=== PATIENT | female | born 1960 | race Caucasian/White ===

== ENCOUNTER 2018-11-23 10:10 | Emergency (ER) | payer MEDICARE ==
--- NOTE | 2018-11-23 12:10 | ED Physician Documentation ---
History of Present Illness - Stated complaint Stated Complaint: HEADACHE - Chief complaint Chief Complaint: Neuro - History obtained from History obtained from: Patient, Family - Additonal information Additional information: Most of the history is from her significant other as the patient is quite somnolent. This is a 58-year-old woman who is visiting friends from [place]. She has a history of heroin abuse for which she is on Suboxone. Last heroin was about a year ago. She also has a history of bipolar disorder on Abilify. Last night and recently she has been taking OxyContin which she obtained illicitly. This morning she took her Suboxone and then for several hours was restless and fidgety and complaining of a headache. Now is more somnolent. She does wake up and answers simple questions. Review of Systems Ten Systems: 10 systems reviewed and negative Constitutional: denies: Fever, Chills Nose: denies: Rhinorrhea / runny nose, Congestion Respiratory: reports: Reviewed and negative GI: reports: Reviewed and negative PD PAST MEDICAL HISTORY - Past Medical History Psych: Bipolar disorder - Past Surgical History Ortho: Hip replacement - Present Medications Home Medications: Ambulatory Orders Medication Instructions Recorded Confirmed Alprazolam [Xanax] 0 mg PO 11/23/18 Aripiprazole [Abilify] 15 mg PO 11/23/18 11/23/18 Buprenorphine HCl/Naloxone HCl 1 each SL 11/23/18 [Suboxone 8-2 mg Sl tab] Soy Isofl/Blk Coh/Gr Tea/Yerba 1 each PO 11/23/18 [[employer]] - Allergies Allergies/Adverse Reactions: Allergies Allergy/AdvReac Type Severity Reaction Status Date / Time Sulfa (Sulfonamide Allergy Rash Verified 11/23/18 10:31 Antibiotics) - Social History Does the pt smoke?: No Smoking Status: Never smoker Does the pt drink ETOH?: No Substance Use and Type: Prescription Pills - Immunizations Immunizations: TDAP >10years/unknown PD ED PE NORMAL - Vitals Vital signs reviewed: Yes - General General: No acute distress, Other (She is somnolent but arouses to voice, pupils are midpoint and reactive.) - Neck Neck: Supple, no meningeal sign, No bony TTP - Cardiac Cardiac: RRR, No murmur - Respiratory Respiratory: No respiratory distress, Clear bilaterally - Abdomen Abdomen: Normal bowel sounds, Soft, Non tender - Back Back: No CVA TTP, No spinal TTP - Derm Derm: Normal color, Warm and dry - Extremities Extremities: No edema, No calf tenderness / cord - Neuro Neuro: Alert and oriented X 3, No motor deficit, No sensory deficit, Normal speech Eye Opening: To Voice Motor: Obeys Commands Verbal: Oriented GCS Score: 14 Results - Vitals Vitals: Vital Signs - 24 hr 11/23/18 11/23/18 10:27 12:30 Temperature 36.3 C L Heart Rate 77 74 Respiratory 22 20 Rate Blood Pressure 151/97 H 138/72 H O2 Saturation 100 97 Oxygen O2 Source Room air - Labs Labs: Laboratory Tests 11/23/18 12:16 Urine Color YELLOW Urine Clarity CLEAR Urine pH 7.5 Ur Specific [place] <=1.005 Urine Protein NEGATIVE Urine Glucose (UA) NEGATIVE Urine Ketones NEGATIVE Urine Occult Blood NEGATIVE Urine Nitrite NEGATIVE Urine Bilirubin NEGATIVE Urine Urobilinogen 0.2 (NORMAL) Ur Leukocyte Esterase NEGATIVE Ur Microscopic Review NOT INDICATED Urine Culture Comments NOT INDICATED Urine Opiates Screen NEGATIVE Ur Oxycodone Screen NEGATIVE Urine Methadone Screen NEGATIVE Ur Propoxyphene Screen NEGATIVE Ur Barbiturates Screen NEGATIVE Ur Tricyclics Screen NEGATIVE Ur Phencyclidine Scrn NEGATIVE Ur Amphetamine Screen POSITIVE H U Methamphetamines Scrn POSITIVE H U Benzodiazepines Scrn POSITIVE H Urine Cocaine Screen NEGATIVE U Cannabinoids Screen NEGATIVE PD MEDICAL DECISION MAKING - ED course ED course: This is a 58-year-old woman whose been using illicit prescription drugs along with her Suboxone. She had some withdrawal symptoms this morning and was somnol ent on initial evaluation but abs are off observation her mental status returned to normal. Her urine drug screen was also positive for methamphetamines but she says she has not used that in a couple of days. She declined to speak with the social service technician at that juncture and requested discharge. Departure - Departure Disposition: 01 Home, Self Care Clinical Impression: Drug abuse Condition: Good Record reviewed to determine appropriate education?: Yes Instructions: ED Drug Abuse General Comments: Please refrain from using drugs both illegal and prescription drugs that are not prescribed to you. Return for new or worsening symptoms.
[2018-11-23 12:19] LABS: MUDS CUTOFF CONCENTRATIONS CUTOFF CONC BELOW:
[2018-11-23 12:24] LABS: BILIRUBIN,URINE NEGATIVE (NEGATIVE); GLUCOSE, URINE (UA) NEGATIVE (NEGATIVE); KETONES,URINE (UA) NEGATIVE (NEGATIVE); LEUKOCYTE ESTERASE, URINE NEGATIVE (NEGATIVE); NITRITE,URINE NEGATIVE (NEGATIVE); OCCULT BLOOD,URINE NEGATIVE (NEGATIVE); PH,URINE 7.5 PH (5.0-7.5); PROTEIN,URINE NEGATIVE (NEGATIVE); UROBILINOGEN,URINE 0.2 (NORMAL) E.U./dL (NORMAL)
[2018-11-23 12:26] LABS: CLARITY,URINE CLEAR (CLEAR)
[2018-11-23 12:34] VITALS: BP 138/72
[2018-11-23 12:36] LABS: AMPHETAMINE SCREEN,URINE POSITIVE (NEGATIVE); BENZODIAZEPINES SCREEN, URINE POSITIVE (NEGATIVE); COCAINE SCREEN URINE NEGATIVE (NEGATIVE); METHADONE SCREEN, URINE NEGATIVE (NEGATIVE); METHAMPHETAMINES SCREEN, URINE POSITIVE (NEGATIVE); OPIATE SCREEN, URINE NEGATIVE (NEGATIVE); OXYCODONE SCREEN, URINE NEGATIVE (NEGATIVE); PROPOXYPHENE SCREEN, URINE NEGATIVE (NEGATIVE); TRICYCLIC ANTIDEPRESSANT,URINE NEGATIVE (NEGATIVE)
== END 2018-11-23 12:51 | disposition home or self-care (01) ==
LOC: ED 10:10
DX: F11.10 Opioid abuse, uncomplicated (principal); F15.10 Other stimulant abuse, uncomplicated; F31.9 Bipolar disorder, unspecified
CPT/HCPCS: 80306; 81001; 81003; 87086; 99284